=== PATIENT | male | born 1980 | race Caucasian/White ===

== ENCOUNTER → 2019-03-09 | Outpatient (CLI) | payer MEDICAID ==
[2019-03-09 10:34] LABS: Basophils # (A) 0.1 k/uL (0-0.2); Basophils % (A) 2 %; Eosinophils # (A) 0.3 k/uL (0-0.7); Eosinophils % (A) 5 %; HCT 37.7 % (39.0-53.0); Lymphocytes # (A) 2.4 k/uL (1.0-4.8); Lymphocytes % (A) 38 %; MCH 32.5 pg (25.0-35.0); MCHC 34.4 g/dL (31.0-37.0); MCV 94.3 fL (80.0-100.0); Mean Platelet Volume 8.5; Monocytes # (A) 0.3 k/uL (0-1.0); Monocytes % (A) 5 %; Neutrophils # (A) 3.1 k/uL (1.3-7.7); Neutrophils % (A) 48 %; Platelet Count 282 k/uL (150-450); RBC 3.99 m/uL (4.30-5.90); RDW 14.8 % (11.5-15.5); WBC 6.4 k/uL (3.8-10.6)
[2019-03-09 16:50] LABS: Albumin 5.3 g/dL (3.80-4.90); Albumin/Globulin Ratio 1.96 (1.60-3.17); Anion Gap 9.4 mmol/L (4.00-12.00); Calcium 10.2 mg/dL (8.7-10.3); Carbon Dioxide 27.6 mmol/L (21.6-31.8); Globulin 2.7 g/dL (1.6-3.3); LDL Cholesterol,Calculated 206.4 mg/dL (0.0-131.0); Potassium 4.4 mmol/L (3.5-5.5); T4, Free (Free Thyroxine) 0.2 ng/dL (0.80-1.80); Total Bilirubin 0.5 mg/dL (0.3-1.2); VLDL Calculation 35.6 mg/dL (5.00-40.00)
== END | disposition home or self-care (01) ==
LOC: LABWHC1 07:43
PROVIDERS: ATTEND Family Medicine
DX: K21.9 Gastro-esophageal reflux disease without esophagitis (principal); I10 Essential (primary) hypertension; E78.01 Familial hypercholesterolemia; R00.0 Tachycardia, unspecified
CPT/HCPCS: 36415; 80053; 80061; 84439; 84443; 84481; 85025; 86141

== ENCOUNTER → 2019-03-30 | Outpatient (CLI) | payer MEDICAID ==
--- NOTE | 2019-03-30 09:07 | US ---
EXAMINATION TYPE: US thyroid st tissue head/neck DATE OF EXAM: 03/30/2019 COMPARISON: NONE CLINICAL HISTORY: E03.9 hypothyroidism. Low thyroid numbers, on thyroid meds GLAND SIZE: Right Lobe: 3.7 x 0.9 x 1.8 cm Overall Parenchyma: heterogenous Left Lobe: 3.4 x 1.2 x 1.5 cm Overall Parenchyma: heterogeneous Isthmus Thickness: 0.3 cm NODULES RIGHT: # of nodules measured on right: 0 LEFT: # of nodules measured on left: 0 ISTHMUS: # of nodules measured in the isthmus: 0 Bilateral neck scanned, no evidence of lymphadenopathy. IMPRESSION: Diffusely heterogenous nonenlarged thyroid gland. This can be seen as sequela of chronic hypothyroidism or thyroiditis.
--- NOTE | 2019-03-30 09:20 | US ---
EXAMINATION TYPE: US abdomen complete DATE OF EXAM: 03/30/2019 COMPARISON: NONE CLINICAL HISTORY: N18.3 chronic kidney disease. Renal disease per patient, bilateral back pain EXAM MEASUREMENTS: Liver Length: 20.8 cm Gallbladder Wall: 0.2 cm CBD: 0.5 cm CHD: 0.4 cm Spleen: 11.5 cm Right Kidney: 11.0 x 3.2 cm Left Kidney: 11.6 x 4.8 x 5.5 cm Limited exam due to overlying bowel gas and patient body habitus Pancreas: Obscured by bowel gas Liver: Enlarged. Heterogenous and echogenic. Areas of focal sparing seen adjacent to GB. Gallbladder: wnl Evidence for sonographic Rogers's sign: neg CBD: wnl CHD: wnl Spleen: wnl Right Kidney: Medial hypoechoic lesion at hilum= 1.6 x 0.7 cm is nonspecific Left Kidney: wnl Upper IVC: wnl Abd Aorta: Mid and proximal portions obscured by overlying bowel gas IMPRESSION: 1. Hepatomegaly with heterogeneous pattern of liver is nonspecific and be seen with diffuse infiltrat gilma disease, hepatitis or hepatic steatosis. Correlate clinically. 2. Right renal hypoechoic lesion is indeterminate due to limitations of exam. Could be correlated wit h CT scan as clinically warranted.
== END | disposition home or self-care (01) ==
LOC: RADUSMAIN 07:52
PROVIDERS: ATTEND Family Medicine
DX: K76.89 Other specified diseases of liver (principal); R16.0 Hepatomegaly, not elsewhere classified; N28.9 Disorder of kidney and ureter, unspecified; N18.3 Chronic kidney disease, stage 3 (moderate); E07.89 Other specified disorders of thyroid; E03.9 Hypothyroidism, unspecified
CPT/HCPCS: 76536; 76700